=== PATIENT | female | born 1970 | race Caucasian/White ===

== ENCOUNTER 2021-07-19 21:34 | Emergency (ER) | payer MEDICAID ==
[~2021-07-19] VITALS: Ht 149.9 cm; Wt 83.9 kg
[~2021-07-19 21:34] MED LIST: LOSA50TA3 PO; TOPXL100 PO
[2021-07-19 21:45] VITALS: BP_SYST 176
--- NOTE | 2021-07-19 21:46 | NUR ---
ER Dr. Barragan at bedside examining patient.
--- NOTE | 2021-07-19 21:47 | NUR ---
Note lor in ED - 07/19/21 at 2202 by CHRISTIAN Placed in room 1 . Placed on environmental monitoring technician, blood pressure machine and pulse oximeter. To gown for exam. Side rails up. Report given to Aislinn SAUCEDO.
--- NOTE | 2021-07-19 21:50 | NUR ---
Patient to ER bed 8 to gown for evaluation. Side rails up. Report given to MIRIAM SAUCEDO.
--- NOTE | 2021-07-19 22:05 | NUR ---
Patient BIB by family from home.C/O Dizziness x 3 days. Patient reported, had headache and dizziness for 3 days, per patient swelling right behind ears.
--- NOTE | 2021-07-19 22:20 | NUR ---
# 20 gauge angiocath placed to LAC. Use of asceptic technique. Opsite placed over site. Blood return noted. Blood for lab drawn from site. Flushed with 10 cc of normal saline. No evidence of infiltration noted. Patient tolerated well.
--- NOTE | 2021-07-19 22:24 | NUR ---
CXR at bedside.
[2021-07-19 22:31] LABS: BASOPHILS % (AUTO) 0.5 % (0.0-2.0); EOSINOPHILS # (AUTO) 0.1 K/uL (0.0-0.4); EOSINOPHILS % (AUTO) 1.3 % (0.0-4.0); HEMATOCRIT 40.8 % (36-48); HEMOGLOBIN 13.6 g/dL (12.0-16.0); LYMPHOCYTES # (AUTO) 1.8 K/uL (1.0-5.5); LYMPHOCYTES % (AUTO) 30.4 % (20.5-51.5); MEAN CORPUSCULAR HEMOGLOBIN 29 pg (27-31); MEAN CORPUSCULAR HGB CONC 33 % (32-36); MEAN CORPUSCULAR VOLUME 87 fL (79.0-98.0); MONOCYTES # (AUTO) 0.4 K/uL (0.0-1.0); MONOCYTES % (AUTO) 6.9 % (1.7-9.3); NEUTROPHILS # (AUTO) 3.6 K/uL (1.8-7.7); NEUTROPHILS % (AUTO) 60.9 % (40.0-70.0); PLATELET COUNT (AUTO) 148 K/uL (130-430); RED BLOOD CELL COUNT(AUTO) 4.69 MIL/uL (4.2-6.2); RED CELL DISTRIBUTION WIDTH 15.2 % (9.0-15.0); WHITE BLOOD COUNT (AUTO) 5.9 K/uL (4.8-10.8)
[2021-07-19 22:58] LABS: INR 0.9 (0.8-1.2); PROTHROMBIN TIME 9.4 SECS (9.5-12.5)
--- NOTE | 2021-07-19 23:27 | NUR ---
Returned from radiology, back to [facility].
--- NOTE | 2021-07-20 00:28 | NUR ---
ER Dr. Moss at bedside examining patient.
--- NOTE | 2021-07-20 03:22 | NUR ---
Dr. Moss at bedside to explain treatment plans.
[2021-07-20 03:52] VITALS: BP_SYST 145
--- NOTE | 2021-07-20 03:52 | NUR ---
Patient given written and verbal discharge instructions and verbalizes understanding. ER MD discussed with patient the results and treatment provided. Patient in stable condition. ID arm band removed. IV catheter removed intact and dressing applied, no active bleeding. No Rx given. Patient educated on pain management and to follow up with PMD. Pain Scale 0/10. Opportunity for questions provided and answered. Dr. Moss will contact patient after Results of CMP.
[2021-07-20 17:59] LABS: POTASSIUM 4.7 mmol/L (3.5-5.1)
[2021-07-20 18:02] LABS: CALCIUM 9.5 mg/dL (8.4-11.0)
[2021-07-20 18:03] LABS: ALBUMIN 3.7 g/dL (3.4-4.8); CREATININE 0.9 mg/dL (0.55-1.30); TOTAL BILIRUBIN 0.4 mg/dL (0.0-1.0)
== END 2021-07-20 03:52 | disposition home or self-care (01) ==
LOC: SED 21:34
DX: R42 Dizziness and giddiness (principal); R51.9 Headache, unspecified; H91.91 Unspecified hearing loss, right ear
CPT/HCPCS: 36415; 70450-TC; 71045; 76376; 80053; 81025; 84484; 85025; 85610-TC; 85651-TC; 85730-TC; 93005; 99285